=== PATIENT | female | born 1955 | race Two or more races ===

== ENCOUNTER 2022-10-05 09:53 | Outpatient (CLI) | payer MEDICARE, OTHER ==
[2022-10-05 11:36] LABS: BILIRUBIN,URINE NEGATIVE (NEGATIVE); COLOR,URINE YELLOW (YELLOW); LEUKOCYTE ESTERASE ,URINE NEGATIVE (NEGATIVE); NITRITE, URINE NEGATIVE (NEGATIVE); PROTEIN,URINE NEGATIVE (NEGATIVE); UGLUCOSE NEGATIVE (NEGATIVE); UROBILINOGEN,URINE 0.2 EU/dL (0.2)
[2022-10-05 12:11] LABS: BACTERIA,URINE None seen /HPF (None Seen); RBC,URINE 0-2 /HPF (0-2); SQUAMOUS EPITHELIAL CELL,UR Few /HPF (None Seen); WBC,URINE NONE SEEN /HPF (0-3)
== END 2022-10-05 23:59 | disposition home or self-care (01) ==
LOC: LAB 09:53
PROVIDERS: ATTEND Internal Medicine Pulmonary Disease
DX: Z01.818 Encounter for other preprocedural examination (principal)
CPT/HCPCS: 71046; 81001

== ENCOUNTER 2022-10-17 14:53 | Outpatient (CLI) | payer MEDICARE, OTHER ==
[2022-10-18] MEDS ORDERED: FAMOTIDINE/PF INJ 20 MG/2 ML VIAL IV ONE (13:06)
[2022-10-18] MEDS ORDERED: FENTANYL PF 100MCG/2ML AMPUL ONE (13:06)
[2022-10-18] MEDS ORDERED: ROCURONIUM BROMIDE 50 MG/5 ML ONE (13:06)
[2022-10-18] MEDS ORDERED: OXYMETAZOLINE HCL NASAL SPRAY 30 ML BOTTLE NS ONE (13:07)
[2022-10-18] MEDS ORDERED: GABA-532 PO (16:36)
[2022-10-18] MEDS ORDERED: ASPI-1169 PO (16:36)
[2022-10-18] MEDS ORDERED: FERR325T23 PO (16:36)
[2022-10-18] MEDS ORDERED: OMEG1CAP40 PO (16:36)
[2022-10-18] MEDS ORDERED: CELE-85 PO (16:36)
[2022-10-18] MEDS ORDERED: NAPR-1009 PO (16:36)
[2022-10-18] MEDS ORDERED: ATEN25TA PO (16:36)
[2022-10-18] MEDS ORDERED: DULO60CA64 PO (16:36)
[2022-10-18] MEDS ORDERED: ROSU10TA29 PO (16:36)
[2022-10-18] MEDS ORDERED: ESCI10TA PO (16:36)
[2022-10-18] MEDS ORDERED: MECL-159 PO (16:36)
[2022-10-18] MEDS ORDERED: OMEP1CAP25 PO (16:36)
[2022-10-18] MEDS ORDERED: LIOT25TA13 PO (16:36)
[2022-10-18] MEDS ORDERED: CHLO25TA2 PO (16:36)
== END 2022-10-17 23:59 | disposition home or self-care (01) ==
LOC: LAB 14:53
PROVIDERS: ATTEND Internal Medicine Pulmonary Disease
DX: E87.5 Hyperkalemia (principal)
CPT/HCPCS: 36415; 84132-TC; J3010; J3490